=== PATIENT | male | born 1950 | race Caucasian/White ===

== ENCOUNTER → 2016-10-04 | Outpatient (REF) | payer BC ==
[2016-10-04 18:45] LABS: PERCENT SATURATION 3.4 % (19.7-37.4)
== END ==
LOC: M LAB REF 16:26
PROVIDERS: ATTEND Internal Medicine
DX: D50.9 Iron deficiency anemia, unspecified (principal)

== ENCOUNTER → 2017-12-02 | Outpatient (REF) | payer BC ==
[2017-12-02 18:21] LABS: FERRITIN 5 NG/ML (26-388); IRON (FE) 24 UG/DL (65-175); PERCENT SATURATION 4.8 % (19.7-50.0); TOTAL IRON BINDING CAPACITY 499 UG/DL (250-450)
== END ==
LOC: M LAB REF 17:28
DX: D50.9 Iron deficiency anemia, unspecified (principal)
CPT/HCPCS: 83550

== ENCOUNTER 2017-12-10 10:00 | Day surgery (SDC) | payer OTHER ==
[~2017-12-10 10:00] MED LIST: LIDOCAINE 2% INJ 100 MG/5 ML SDV (FOR ANES.) As Ordered; LR 1,000 ML IV; PROPOFOL 200 MG/20 ML VIAL As Ordered
[2017-12-10] MEDS ORDERED: ROPIvacaine 0.5% 30 ML INJECTION (J2795 PER 1MG) (10:01)
[2017-12-10] MEDS ORDERED: EPINEPHrine INJ 1 MG/ML 1ML AMP (10:01)
[2017-12-10] MEDS ORDERED: MIDAZOLAM INJ 2 MG/2 ML VIAL (J2250) As Ordered ×2 (10:01→10:32)
[2017-12-10] MEDS ORDERED: dexameTHASONE 10 MG/1 ML VIAL PRES.FREE (J1100) (10:01)
[2017-12-10] MEDS ORDERED: fentaNYL 100 MCG/2 ML INJECTION (J3010) As Ordered ×2 (10:01→10:32)
[2017-12-10] MEDS ORDERED: ROCURONIUM BROMIDE 50 MG/5 ML VIAL As Ordered (10:04)
[2017-12-10] MEDS ORDERED: dexameTHASONE 4 MG/ML 1ML VIAL (J1100) As Ordered ×2 (10:08)
[2017-12-10] MEDS ORDERED: ONDANSETRON 4MG/2ML VIAL (J2405) As Ordered (10:08)
[2017-12-10] MEDS: MIDAZOLAM INJ 2 MG/2 ML VIAL (J2250) IV (11:49)
[2017-12-10] MEDS: fentaNYL 100 MCG/2 ML INJECTION (J3010) IV (11:49)
[2017-12-10] MEDS ORDERED: PHENYLEPHRINE INJ 10MG/ML VIAL (J2370) As Ordered (12:15)
[2017-12-10] MEDS: EPINEPHrine 1MG/ML INJ 30ML MD-VIAL As Ordered (13:13)
[2017-12-10] MEDS ORDERED: NEOSTIGMINE 10 MG/10 ML VIAL (J2710) As Ordered (13:32)
[2017-12-10] MEDS ORDERED: GLYCOPYRROLATE INJ 0.2 MG/ML 2 ML VIAL As Ordered (13:32)
[2017-12-10] MEDS ORDERED: LR 1,000 ML IV ×2 (14:15→15:00)
[2017-12-10] MEDS ORDERED: PERCOCET 5MG/325MG TAB PO (14:15)
[2017-12-10] MEDS ORDERED: ONDANSETRON 4MG/2ML VIAL (J2405) IV (14:15)
[2017-12-10] MEDS ORDERED: METOCLOPRAMIDE INJ 10MG/2ML VIAL (J2765) IV (14:15)
[2017-12-10] MEDS ORDERED: fentaNYL 100 MCG/2 ML INJECTION (J3010) IV (14:15)
[2017-12-10] MEDS ORDERED: MEPERIDINE INJ 25 MG/ML VIAL (J2175) IV (14:15)
[2017-12-10] MEDS ORDERED: NORCO, ANEXSIA 5/325MG TABLET (HYDROcodone/ACETAMINOPHEN) PO ×2 (15:00)
[2017-12-10] MEDS ORDERED: MORPHINE 4 MG/ML 1ML VIAL/SYRINGE (J2270) IV (15:00)
== END 2017-12-10 16:00 | disposition home or self-care (01) ==
LOC: M SDC 10:00
DX: M19.011 Primary osteoarthritis, right shoulder (principal); M75.21 Bicipital tendinitis, right shoulder; K21.9 Gastro-esophageal reflux disease without esophagitis; E78.00 Pure hypercholesterolemia, unspecified; I10 Essential (primary) hypertension; Z87.891 Personal history of nicotine dependence; G47.30 Sleep apnea, unspecified; Z79.899 Other long term (current) drug therapy
CPT/HCPCS: 29824

== ENCOUNTER → 2018-10-20 | Outpatient (CLI) | payer BC ==
[~2018-10-20] MED LIST changes: +FISH1000 PO; +GLUC1CAP10 PO; -LIDOCAINE 2% INJ 100 MG/5 ML SDV (FOR ANES.) As Ordered; +LISINOPRIL-HCTZ PO; -LR 1,000 ML IV; +MULTCAP PO; +OMEP40CA2 PO; -PROPOFOL 200 MG/20 ML VIAL As Ordered; +SIMV40TA2 PO
--- NOTE | 2018-10-20 16:58 | REP ---
Duplex extremity venous ultrasound: Right lower extremity. History: Localized swelling, mass and lump right lower limb. Rule out DVT. Findings: The deep veins are anechoic and fully compressible from the groin to the popliteal fossa in the right lower extremity. Color flow imaging is homogeneous. Spectral Doppler interrogation demonstrates intact respiratory variation in flow and normal manual augmentation of flow. There is no evidence of deep vein thrombosis. Impression: Negative right lower extremity duplex venous ultrasound. No evidence of deep vein thrombosis. Electronically Signed by Noel Bartlett MD 10/20/2018 04:49 P
--- NOTE | 2018-10-20 16:59 | REP ---
Soft-tissue ultrasound right popliteal fossa. History: Localized swelling, mass and lump. Findings: The right posterior knee and proximal calf soft tissues are scanned in the area of the swelling. A somewhat irregular 7.0 x 1.0 x 3.8 cm intramuscular fluid collection is seen in the posterior midline of the calf. This may reflect edema or hemorrhage associated with muscle tear. Fluid related to a dissecting Webster's cyst would be a possibility as well. Electronically Signed by Noel Bartlett MD 10/20/2018 04:51 P
== END ==
LOC: M RAD 16:08
PROVIDERS: ATTEND Physician Assistant
DX: R22.41 Localized swelling, mass and lump, right lower limb (principal)